=== PATIENT | female | born 1935 | race Caucasian/White ===

== ENCOUNTER 2023-10-20 13:55 | Inpatient (IN) | payer MEDICARE, OTHER, SELFPAY ==
[2023-10-20] VITALS (14 sets, daily range): BP systolic 113–169; BP diastolic 70–102; BMI 21.2
[2023-10-20] MEDS: ADACEL 0.5 ML IM (06:44)
--- NOTE | 2023-10-20 06:50 | EDRN ---
Pt was using her walker and her knees gave out on her. Pt says she has pain in her knees when she walks. Pt sustained skin tears to b/l arms. No pain while lying on stretcher.
--- NOTE | 2023-10-20 07:05 | ED.GENMED ---
History of Present Illness
General
Chief Complaint: Fall
Source: patient
Exam Limitations: none
Time Seen by Provider: 10/20/23 06:32
Travel History
Have you had any contact with someone who has COVID-19?: No
Do you have any symptoms of coronavirus? Fever > 100 degrees, chills, cough, shortness of breath, sore throat, loss of taste or smell, muscle aches, or headache?: No
History of Present Illness
History of Present Illness:
88-year-old female stood up with her knees getting out of 4 AM. Fell on her buttock. No head injury. Some abrasions to the arms and leg. No chest pain abdominal pain no head injury or neck pain. Symptoms are mild in nature
Past History
Past History
ED Past Medical History: Arrthythmia and HTN
Review of Systems
Review of Systems
All Other Systems: Not applicable
Respiratory: Reports no symptoms
Cardiac: Reports no symptoms
Phy Exam
Physical Exam
Physical Exam:
TRAUMA EXAM:
VITAL SIGNS: Vital signs reviewed, cooperative
DISTRESS: No active disease
EYES: Pupils reactive, no orbital trauma
NOSE: No deformity or epistaxis
FACE AND SCALP: No scalp or facial trauma, external canals no blood
NECK: Supple nontender
BACK: Back nontender, pelvis stable to compression
RESPIRATORY: No distress, breath sounds normal, no tender chest wall
CARDIAC: No murmur, pulses equal and strong
ABDOMEN: Soft nontender bowel sounds normal
SKIN: Superficial skin tear to the left and right arm and left leg. No deep bony tenderness
EXTREMITIES: Nontender, except very mild lower sacral tenderness. Pelvis stable.
NEUROLOGICAL: Alert, oriented, no motor deficits
PSYCH: Mood affect normal
Course
Orders/Labs/Results
Orders:
Orders
10/20/23 06:35
CT Head W/o Iv Contrast Urgent
Comment:
Reason For Exam: Fall/anticoagulated
Cardiac Monitoring- Treatment ONCE
Lumbar Spine, 2 or 3 View [CR Lumbar Spine 2 Or 3 Views] Urgent
Comment:
Reason For Exam: trauma
Pelvis, 1 or 2 Views CR [CR Pelvis - 1 Or 2 Views ] Urgent
Comment:
Reason For Exam: trauma
Sacrum/Coccyx 2 View CR [CR Sacrum/coccyx Min 2 View] Urgent
Comment:
Reason For Exam: trauma
10/20/23 06:36
Tetanus/Diphth/Acelpertussis [Adacel] 0.5 ml IM .ONCE ONE
10/20/23 09:03
Basic Metabolic Panel Urgent
Complete Blood Count/With Diff Urgent
Abnormal Lab Results
10/20/23
09:03
WBC 12.1 H 10^3/uL
(4.8-10.8)
RBC 3.58 L 10^6/uL
(4.20-5.40)
Hgb 11.7 L g/dL
(12.0-16.0)
Hct 33.6 L %
(37.0-47.0)
MCH 32.7 H pg
(27.0-31.0)
Abs Immat Gran (auto) 0.2 H 10^3/uL
(0-0.05)
Absolute Neuts (auto) 10.0 H 10^3/uL
(1.4-6.5)
Absolute Lymphs (auto) 0.6 L 10^3/uL
(1.2-3.4)
Absolute Monos (auto) 1.3 H 10^3/uL
(0.1-0.6)
Immature Gran % 1.3 H %
(0-0.5)
Neutrophils % 82.7 H %
(42.2-75.2)
Lymphocytes % 4.6 L %
(20.5-51.1)
Monocytes % 11.1 H %
(1.7-9.3)
Sodium 125 L mmol/L
(135-145)
Chloride 91 L mmol/L
(98-107)
Creatinine 0.4 L mg/dL
(0.6-1.0)
Glucose 136 H mg/dl
(70-99)
10/20/23 09:03
10/20/23 09:03
Vital Signs
Initial and Last Documented VS:
Initial Vital Signs
Temp Pulse Resp BP Pulse Ox
98.2 F 90 22 122/70 97
10/20/23 05:20 10/20/23 05:20 10/20/23 05:20 10/20/23 05:20 10/20/23 05:20
Last Documented Vital Signs
Temp Pulse Resp BP Pulse Ox
98.2 F 89 19 137/92 92
10/20/23 05:20 10/20/23 10:00 10/20/23 10:00 10/20/23 10:00 10/20/23 09:47
MDM/Problems Addressed
Differential Diagnosis Includes:
Appear to be all superficial contusions and abrasions. However on Eliquis based on mechanism CT of the head will also be obtained.
*Critical Care Note
Total Time (30-74mins, 75-104mins- exclusive of procedures): Not Applicable
Update Note
Update Note:
Patient's x-rays show probable old fractures. Head CT stable. Not aware of old CVA however. History of hyponatremia. Sodium was checked and 125. Discussed with neurology who felt inpatient management was appropriate
ED Attending Note
-
Portions of this chart may have been created with voice recognition software.� Occasional wrong word or��sound alike� substitutions may have occurred due to the inherent limitations of voice recognition software.
Discharge Plan
Departure
Patient Disposition: Admit
Date of Disposition: 10/20/23
Time of Disposition: 10:11
Presentation/result/management discussed w/ accepting MD/DO: Hospitalist
Discharge Problem:
Hyponatremia, Fall, Chronic knee issues, Multiple abrasions
Referrals:
Pop Palomares MD [Family Provider] -
Interventions
Interventions:
*Risk Screen - Suicide Last Done: 10/20/23 05:20
*General Assessment Last Done: 10/20/23 06:39
*Neglect/Abuse Screening Last Done: 10/20/23 05:20
ED- Fall Risk Assessment Last Done: 10/20/23 06:48
*ED COVID-19 Vaccine History Last Done: 10/20/23 06:37
ED-Musculoskeletal Assessment Last Done: 10/20/23 06:48
ED- Neurological Assessment Last Done: 10/20/23 06:48
ED-Skin Assessment Last Done: 10/20/23 06:48
Discharge Date and Time
Print Language: SINHALA
[2023-10-20 09:11] LABS: % Basophils 0.2 % (0-2); % Eosinophils 0.1 % (0-6); % Immature Granulocytes 1.3 % (0-0.5); % Lymphocytes 4.6 % (20.5-51.1); % Monocytes 11.1 % (1.7-9.3); % Neutrophils 82.7 % (42.2-75.2); Absolute Immature Granulocytes 0.2 10^3/uL (0-0.05); Absolute Lymphocytes 0.6 10^3/uL (1.2-3.4); Absolute Monocytes 1.3 10^3/uL (0.1-0.6); Hematocrit 33.6 % (37.0-47.0); Hemoglobin 11.7 g/dL (12.0-16.0); Mean Corp Hgb Conc. 34.8 g/dL (33.0-37.0); Mean Corpuscular Hgb 32.7 pg (27.0-31.0); Mean Corpuscular Volume 93.9 fL (81.0-99.0); Mean Platelet Volume 10.1 fL (7.4-10.4); Nucleated Red Blood Cells % 0 %; Platelet Count 160 10^3/uL (130-400); Red Blood Cell Count 3.58 10^6/uL (4.20-5.40); Red Cell Dist. Width 13.7 % (11.5-14.5); White Blood Cell Count 12.1 10^3/uL (4.8-10.8)
[2023-10-20 09:35] LABS: Blood Urea Nitrogen 9 mg/dl (7-17); Calcium 8.7 mg/dl (8.4-10.2); Carbon Dioxide 25 mmol/L (22-30); Chloride 91 mmol/L (98-107); Estimated Creatinine Clearance 59 ml/min; Glucose 136 mg/dl (70-99); Potassium 4.1 mmol/L (3.5-5.1); Sodium 125 mmol/L (135-145); eGFR > 60.00
--- NOTE | 2023-10-20 12:21 | W.CON.NEPH ---
Medical History
-
Chief Complaint: Hyponatremia
History of Present Illness:
This is an 88-year-old female who resides at [facility] who previously had received all her care at [facility]. She has hypertension on a multidrug regimen, arrhythmia with anticoagulation with Eliquis, hypothyroidism on
Synthroid therapy. Most of her history is given by her daughter. She had recently had episodes where she appeared to be spaced out. This was then felt to be a seizure by neurology and she was ordered an EEG to be done as an outpatient. It
appears that the sodium level at that time was 127. There is no intervention for that at that time. She was readmitted for a fall and she was found to have a sodium level of 119. States that she was admitted for 3 days at [facility] and received
for appear to be hypertonic saline. She was then discharged to rehab. Reportedly at rehab her sodium level has increased into the 135 range. Her daughter says that she was drinking a lot of fluid and the patient does state that she drinks easily
up to 96 ounces per day. She drinks a lot of thirst but because she believes it makes her health better. She came to the emergency room today because she got out of bed to go to the bathroom and had fallen. Here they had checked her sodium level
and it was noted to be 125.
Past Medical History
Arrhythmia, hypertension, hypothyroidism, depression/anxiety
Femoral titanium haydee, back surgery, carpal tunnel surgery
Social History
Tobacco: Non-Smoker
Alcohol: Daily
Family History
No CKD
Allergies / Home Medications
Allergy/AdvReac Type Severity Reaction Status Date / Time
Penicillins Allergy Unknown Verified 10/20/23 05:23
�Medication �Instructions �Recorded �Confirmed �Type
acetaminophen 325 mg tablet 650 mg PO Q6H PRN pain 10/20/23 10/20/23 History
amlodipine 2.5 mg tablet 2.5 mg PO HS Blood Pressure 10/20/23 10/20/23 History
apixaban 2.5 mg tablet (Eliquis) 2.5 mg PO Q12 atrial fibrillation 10/20/23 10/20/23 History
bupropion HCl 150 mg 24 hr tablet, 150 mg PO DAILY depression/anxiety 10/20/23 10/20/23 History
extended release
buspirone 7.5 mg tablet 7.5 mg PO BID anxiety 10/20/23 10/20/23 History
cholecalciferol (vitamin D3) 50 50 mcg PO DAILY Supplement 10/20/23 10/20/23 History
mcg (2,000 unit) capsule (Vitamin
D3)
levothyroxine 112 mcg tablet 112 mcg PO DAILY Thyroid 10/20/23 10/20/23 History
metoprolol succinate 25 mg 25 mg PO HS Blood Pressure 10/20/23 10/20/23 History
tablet,extended release 24 hr
polyethylene glycol 3350 17 17 g PO HS constipation 10/20/23 10/20/23 History
gram/dose oral powder (Miralax)
prednisone 20 mg tablet 20 mg PO BIDPRN PRN x 5 days for 10/20/23 10/20/23 History
knee pain
Review of Systems
-
No chest pain or shortness of breath. No fevers chills or sweats. No excessive thirst. No issues with urination. Mild back pain
All other systems: Negative unless noted
Physical Exam
Vital Signs
Vital Signs
Temp Pulse Resp BP Pulse Ox
98.2 F 88 24 137/92 94
10/20/23 05:20 10/20/23 11:00 10/20/23 11:00 10/20/23 10:00 10/20/23 10:45
Lab Results
WBC 12.1 10^3/uL (4.8-10.8) H 10/20/23 09:03
RBC 3.58 10^6/uL (4.20-5.40) L 10/20/23 09:03
Hgb 11.7 g/dL (12.0-16.0) L 10/20/23:
Hct 33.6 % (37.0-47.0) L 10/20/23 09:03
Plt Count 160 10^3/uL (130-400) 10/20/23 09:03
Sodium 125 mmol/L (135-145) L 10/20/23:03
Potassium 4.1 mmol/L (3.5-5.1) 10/20/23:
Chloride 91 mmol/L (98-107) L 10/20/23:
Carbon Dioxide 25 mmol/L (22-30) 10/20/23:
BUN 9 mg/dl (7-17) 10/20/23:
Creatinine 0.4 mg/dL (0.6-1.0) L 10/20/23:
eGFR > 60.00 10/20/23:
Glucose 136 mg/dl (70-99) H 10/20/23:
Calcium 8.7 mg/dl (8.4-10.2) 10/20/23 09:03
Physical Exam
Patient is awake alert oriented and in no distress. Mood and affect were pleasant, insight and judgment were good. Pupils are equal round and reactive to light, extraocular movements are intact, sclera were anicteric. Hearing was normal, ears and
nose are intact. Oropharynx was clear. Neck was supple with trachea midline and no thyromegaly. Heart was regular rate and rhythm without rubs. Lower extremities without edema. Lungs were clear to auscultation bilaterally and with normal
excursion. Abdomen was soft, nontender, with normal active bowel sounds, and no hepatosplenomegaly. Skin was without rash and with normal turgor.
Data Reviewed
-
Radiology: Image Personally Visualized and interpreted (On 01/20/2024 x-ray lumbar spine shows compression fracture L2 by my reading) and Report Reviewed by me (On October 20, 2023 pelvic x-ray shows chronic left pelvic ramus as well as ischial
tuberosity fracture)
CT Scan: Report Reviewed by me (CT of the head on October 20, 2023 shows chronic strokes in the left frontal and temporal lobes, a 2.5 cm meningioma, encephalomalacia diffuse)
Labs: Labs Reviewed by me (Sodium 125, potassium 4.1, creatinine 0.9, BUN 9, glucose 136, hemoglobin 11.7)
Old Records: Reviewed (As discussed with the family and listed above)
Assessment/Plan
-
Assessment:
Hyponatremia
Hypertension
Fall
L2 compression fracture
Hypothyroidism
History seizure
Depression/anxiety
Plan:
Fluid restriction 40 ounces per day
Follow BMP
Check urine studies, may benefit from [facility]
Check TSH
May need to hold bupropion and buspirone if sodium falls
Discussed with patient and daughter
[2023-10-20 13:14] LABS: Urine Sodium 15 mmol/L (30-90)
--- NOTE | 2023-10-20 13:24 | HPS.HSE ---
Family Physician
-
Family Physician: Pop Palomares
Chief Complaint
-
Weakness fall
History of Present Illness
88 female from [facility] hypertension A-fib Eliquis hypothyroidism arthritis anxiety depression presents for evaluation of fall. AOx3 patient reports getting up from bed early in the morning and was on her way to the bathroom when she
felt her knees were weak eating subsequently took a fall. Denies head trauma loss of consciousness shaking incontinence chest abdomen pain palpitations. On evaluation in ED patient was found to have sodium 125. Vital signs stable. CT head showed
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 Pelvic and lower spine x-rays noted age indeterminant compression fracture L2 and likely chronic pelvic fracture left pubis and ischial tuberosity. Of note
patient was also recently hospitalized and treated at [facility] for severe hyponatremia, subsequently discharged to rehab completed a few days ago as per patient. 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
seizure medications.
Medical History
Past Medical History
Past Medical History: Reports Other (as above)
Past Surgical History: Reports Other (as abvoe)
Social History
Tobacco: Non-smoker
Alcohol: Occasional
Drug: None
Living: Other ([facility])
Family History
Family History: Not pertinent (reviewed)
Allergies / Home Medications
Allergies reflects when Allergies were last updated in [facility].
Home Medications with original date entered in [facility]
Allergy/Medication List:
Allergies
Allergy/AdvReac Type Severity Reaction Status Date / Time
Penicillins Allergy Unknown Verified 10/20/23 05:23
Home Medications
acetaminophen 325 mg tablet 650 mg PO Q6H PRN pain 10/20/23
amlodipine 2.5 mg tablet 2.5 mg PO HS Blood Pressure 10/20/23
apixaban 2.5 mg tablet (Eliquis) 2.5 mg PO Q12 atrial fibrillation 10/20/23
bupropion HCl 150 mg 24 hr tablet, extended release 150 mg PO DAILY depression/anxiety 10/20/23
buspirone 7.5 mg tablet 7.5 mg PO BID anxiety 10/20/23
cholecalciferol (vitamin D3) 50 mcg (2,000 unit) capsule (Vitamin D3) 50 mcg PO DAILY Supplement 10/20/23
levothyroxine 112 mcg tablet 112 mcg PO DAILY Thyroid 10/20/23
metoprolol succinate 25 mg tablet,extended release 24 hr 25 mg PO HS Blood Pressure 10/20/23
polyethylene glycol 3350 17 gram/dose oral powder (Miralax) 17 g PO HS constipation 10/20/23
prednisone 20 mg tablet 20 mg PO BIDPRN PRN x 5 days for knee pain 10/20/23
Review of Systems
-
A 12 point ROS was completed and negative except as noted: Yes
Constitutional: Reports Other (as below)
Physical Exam
Vital Signs
Vital Signs
Temp Pulse Resp BP Pulse Ox
98.2 F 88 24 137/92 94
10/20/23 05:20 10/20/23 11:00 10/20/23 11:00 10/20/23 10:00 10/20/23 10:45
Physical Exam
General: Other (as below)
Laboratory Results
-
10/20/23 09:03
10/20/23 09:03
Impression/Plan
-
ROS
General: Denies fever chills night sweats unexpected weight loss
Neuro: Denies seizure shaking loss of consciousness dizziness vertigo
Psych: denies depression hallucinations confusion manic episodes
Endocrine: Denies polyuria polydipsia polyphagia heat/cold intolerance
HEENT: Denies blindness visual disturbances epistaxis
Pulmonary: denies coughing hemoptysis sneezing sob dyspnea on exertion
Cardiovascular: denies chest pain palpitations leg swelling
Hematology: denies signs symptoms of anemia easy bruising/bleeding
Gastrointestinal: denies nausea vomiting diarrhea constipation hematemesis hematochezia melena
Genito-Urinary: denies retention incontinence dysuria
Musculoskeletal: Bilateral knee pain weakness
Dermatology: denies rash laceration bruising
Physical Exam
General: No pallor, cyanosis, or jaundice.
HEENT: Throat clear. PERRLA Normocephalic atraumatic
NECK: Supple. No JVD Carotid Bruits
RESPIRATORY: Lungs clear to auscultation. No crackles wheezes stridor
CVS: S1, S2 normal. RRR. No murmur, rub or gallop.
ABDOMEN: Soft, non-tender. No distension. BS+/normal.
EXTREMITIES: No peripheral cyanosis or edema.
[employer]: AOx3. No focal deficits.
IMPRESSION:
88 female from [facility] hypertension A-fib Eliquis hypothyroidism arthritis anxiety depression presents for evaluation of fall. AOx3 patient reports getting up from bed early in the morning and was on her way to the bathroom when she
felt her knees were weak eating subsequently took a fall. Denies head trauma loss of consciousness shaking incontinence chest abdomen pain palpitations. On evaluation in ED patient was found to have sodium 125. Vital signs stable. CT head showed
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 Pelvic and lower spine x-rays noted age indeterminant compression fracture L2 and likely chronic pelvic fracture left pubis and ischial tuberosity. Of note
patient was also recently hospitalized and treated at [facility] for severe hyponatremia, subsequently discharged to rehab completed a few days ago as per patient. 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
seizure medications.
PLAN:
#Hyponatremia
Nephro eval appreciated
Fluid restriction
Monitor sodium, avoid overcorrection
#Ambulate dysfunction/fall
#L2 Compression fx indeterminate age
#Left pelvic fx likely chronic
PT OT eval
Fall precautions
Pain control
Sacrum Coccyx Pelvic Lumbar spine XR appreciated
-Age-indeterminate moderate compression deformity along the superior endplate of L2.
-Fracture deformities of the left pubis and ischial tuberosity, which may be chronic in nature. Correlation with prior x-rays and history recommended.
-Internally fixated proximal femur fracture.
CT head appreciated
-no acute abn's
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
-severe white matter leukoaraiosis
-moderate cerebellar volume loss
#Hypertension
Continue home amlodipine and metoprolol with holding parameters
#A-fib rate controlled
Continue home metoprolol with holding parameters
Continue home renally dosed Eliquis due to age and weight
#Hypothyroidism
Follow-up thyroid function test
Continue home Synthroid
#Anxiety/depression
Continue home bupropion buspirone
DVT prophylaxis Eliquis
Meds reconciled and resumed as appropriate
Full code as per patient
I spent a total of 85 minutes with the patient or on the floor. More than 50% of this time involved counseling and coordination of care.
[2023-10-20 14:35] LABS: Free T4 2.12 ng/dl (0.78-2.19)
[2023-10-20 14:49] LABS: TSH 0.07 uIU/ml (0.47-4.68)
[2023-10-20 15:07] LABS: Osmolality Urine 494 mOsm/kg (300-900)
[2023-10-20] MEDS: SODIUM CHLORIDE 3% 250 IV (17:04)
[2023-10-20] MEDS: ELIQUIS 2.5 MG PO (21:00)
[2023-10-20] MEDS: MIRALAX 17 GRAMS PO (21:00)
[2023-10-20] MEDS: BUSPAR 7.5 MG PO (21:00)
[2023-10-20] MEDS: NORVASC 2.5 MG PO (21:01)
[2023-10-20] MEDS: TOPROL XL 25 MG PO (21:01)
[2023-10-20] MEDS: TYLENOL 650 MG PO (21:01)
[2023-10-20 21:47] LABS: Blood Urea Nitrogen 12 mg/dl (7-17); Carbon Dioxide 24 mmol/L (22-30); Chloride 89 mmol/L (98-107); Estimated Creatinine Clearance 59 ml/min; Glucose 165 mg/dl (70-99); Potassium 4.3 mmol/L (3.5-5.1); Sodium 123 mmol/L (135-145); eGFR > 60.00
[2023-10-21] VITALS (8 sets, daily range): BP systolic 119–137; BP diastolic 74–92; PULSE 86–92; O2SAT 97; BMI 21.2; BMI 20.5
[2023-10-21 05:50] LABS: Hematocrit 31.9 % (37.0-47.0); Hemoglobin 11.4 g/dL (12.0-16.0); Mean Corp Hgb Conc. 35.7 g/dL (33.0-37.0); Mean Corpuscular Volume 92.5 fL (81.0-99.0); Mean Platelet Volume 10.5 fL (7.4-10.4); Platelet Count 152 10^3/uL (130-400); Red Blood Cell Count 3.45 10^6/uL (4.20-5.40); Red Cell Dist. Width 13.7 % (11.5-14.5); White Blood Cell Count 9.1 10^3/uL (4.8-10.8)
[2023-10-21] MEDS: SYNTHROID 112 MCG PO (06:09)
[2023-10-21 06:10] LABS: Blood Urea Nitrogen 10 mg/dl (7-17); Calcium 8.7 mg/dl (8.4-10.2); Carbon Dioxide 24 mmol/L (22-30); Chloride 96 mmol/L (98-107); Estimated Creatinine Clearance 59 ml/min; Glucose 113 mg/dl (70-99); Magnesium 2.1 mg/dl (1.6-2.3); Potassium 4.1 mmol/L (3.5-5.1); Sodium 129 mmol/L (135-145); eGFR > 60.00
[2023-10-21] MEDS: ELIQUIS 2.5 MG PO ×2 (08:13→20:55)
[2023-10-21] MEDS: BUSPAR 7.5 MG PO ×2 (08:13→20:54)
[2023-10-21] MEDS: VITAMIN D3 (cholecalciferol) 50 MCG PO (08:13)
[2023-10-21] MEDS: WELLBUTRIN XL (24 hour extended release) 150 MG PO (08:13)
[2023-10-21] MEDS: TYLENOL 650 MG PO ×2 (08:18→20:58)
--- NOTE | 2023-10-21 08:54 | W.PN.HOSP.TC ---
Today's Communication/Plan
-
see bold
Assessment / Plan
Assessment / Plan
HPI: 88 female from [facility] hypertension A-fib Eliquis hypothyroidism arthritis anxiety depression presents for evaluation of fall. AOx3 patient reports getting up from bed early in the morning and was on her way to the bathroom when
she felt her knees were weak eating subsequently took a fall. Denies head trauma loss of consciousness shaking incontinence chest abdomen pain palpitations. On evaluation in ED patient was found to have sodium 125. Vital signs stable. CT head
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 Pelvic and lower spine x-rays noted age indeterminant compression fracture L2 and likely chronic pelvic fracture left pubis and ischial tuberosity. Of
note patient was also recently hospitalized and treated at [facility] for severe hyponatremia, subsequently discharged to rehab completed a few days ago as per patient. 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
seizure medications.
#Hyponatremia
Sodium 129 today, was 123 upon admission. Status post hypertonic saline
Appreciate nephrology input, status post hypertonic saline
Patient to get [facility] today, continue fluid restriction, trend sodium
EEG unremarkable (ordered outpt for concerns of absence seizures)
#Ambulate dysfunction/fall
#L2 Compression fx indeterminate age
#Left pelvic fx likely chronic
PT OT eval - rec SNF
Fall precautions
Pain control
Sacrum Coccyx Pelvic Lumbar spine XR appreciated
-Age-indeterminate moderate compression deformity along the superior endplate of L2.
-Fracture deformities of the left pubis and ischial tuberosity, which may be chronic in nature. Correlation with prior x-rays and history recommended.
-Internally fixated proximal femur fracture.
CT head appreciated
-no acute abn's
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
-severe white matter leukoaraiosis
-moderate cerebellar volume loss
#Hypertension
Continue home amlodipine and metoprolol with holding parameters
#A-fib rate controlled
Continue home metoprolol with holding parameters
Continue home renally dosed Eliquis due to age and weight
#Hypothyroidism
Follow-up thyroid function test
Continue home Synthroid
#Anxiety/depression
Continue home bupropion buspirone
DVT prophylaxis�Eliquis
Full code
Total time spent to see the patient on the floor, examine the patient, review data and lab results, discuss treatment plan with patient, nursing staff around 51 minutes.
Physical Exam
General: Frail, elderly, no acute distress
HEENT: Normocephalic, Atraumatic, EOMI, MMM
Respiratory: Clear to Auscultation bilaterally
Cardiac: Normal S1/S2, Regular Rate and Rhythm
GI: Soft, Nontender, Nondistended, Normal Bowel Sounds
Extremities: No Clubbing, Cyanosis
Scattered lesions on lower extremity
Neuro: Nonfocal/Grossly Intact
Psych: Calm, Cooperative
Derm: No Visible lesions
Anticipated Discharge: 24 - 48 hours
Subjective/Interval History
-
Date of Service: October 21, 2023
Patient reports feeling better. She feels strong. No fever, no vomiting.
Objective Data
-
Labs:
Laboratory Results
10/20/23 10/21/23
21:21 05:29
WBC 9.1
Hgb 11.4 L
Hct 31.9 L
Plt Count 152
Sodium 123 L 129 L
Potassium 4.3 4.1
Chloride 89 L 96 L
Carbon Dioxide 24 24
BUN 12 10
Creatinine 0.4 L 0.5 L
Glucose 165 H 113 H
Calcium 9.0 8.7
Vital Signs:
Vital Signs
Temp Pulse Resp BP Pulse Ox
98.4 F 89 18 125/74 93
10/21/23 07:00 10/21/23 07:00 10/21/23 07:00 10/21/23 07:00 10/21/23 07:00
I&O
10/20/23 10/21/23 10/22/23
06:59 06:59 06:59
Intake Total 850 / 850
Balance 850 / 850
--- NOTE | 2023-10-21 12:02 | CM ---
Addendum entered by Corina Guillaume 10/21/23 12:42:
Spoke with daughter Lisa - [phone]
Agrees SNF would be beneficial for mother. Prefers [facility] and [facility]
Referral sent in [facility]
Original Note:
Met with pt at bedside
Lives in independent living at [facility] in [place]. Has apartment. Prepares breakfast for self, community for other meals. Light housekeeping. Daughter is nearby - assists as needed and helps with shopping
DME - [employer]
SNF - has been to [facility] in [place] in past
HH - denies past VN
PCP - Dr Montez Palomares
Pharm - [facility]
PT/OT recommending SNF. Will discuss with pt and her daughter regarding options
Plan - anticipate SNF when medically ready
--- NOTE | 2023-10-21 12:19 | W.PN.NEPH.PH ---
Today's Communication / Plan
-
[facility]
Assessment/Plan
-
Assessment:
Hyponatremia
Hypertension
Fall
L2 compression fracture
Hypothyroidism
History seizure
Depression/anxiety
Plan:
Fluid restriction 40 ounces per day
Follow BMP
[facility] today
May need to hold bupropion and buspirone if sodium falls
-
-
Date of Service: October 21, 2023
CC / HPI / ROS
-
Chief Complaint:
hyponatremia
History of Present Illness:
Na up to 129 with 3%
BP stable
remains on buproprion for anxiety
Review of Systems:
no CP/SOB
no issues with FR
Labs
-
Labs:
WBC 9.1 10^3/uL (4.8-10.8) 10/21/23 05:29
RBC 3.45 10^6/uL (4.20-5.40) L 10/21/23 05:29
Hgb 11.4 g/dL (12.0-16.0) L 10/21/23 05:29
Hct 31.9 % (37.0-47.0) L 10/21/23 05:29
Plt Count 152 10^3/uL (130-400) 10/21/23 05:29
Sodium 129 mmol/L (135-145) L 10/21/23 05:29
Potassium 4.1 mmol/L (3.5-5.1) 10/21/23 05:
Chloride 96 mmol/L (98-107) L 10/21/23 05:29
Carbon Dioxide 24 mmol/L (22-30) 10/21/23 05:
BUN 10 mg/dl (7-17) 10/21/23 05:
Creatinine 0.5 mg/dL (0.6-1.0) L 10/21/23 05:29
eGFR > 60.00 10/21/23 05:29
Glucose 113 mg/dl (70-99) H 10/21/23 05:29
Calcium 8.7 mg/dl (8.4-10.2) 10/21/23 05:29
Physical Exam
-
Vital Signs:
Vital Signs
Temp Pulse Resp BP Pulse Ox
97.5 F 81 18 136/83 92
10/21/23 11:10 10/21/23 11:10 10/21/23 11:10 10/21/23 11:10 10/21/23 11:10
Cardiovascular:: Regular rate and rhythm
Respiratory:: Bilateral: CTA
Lung Excursion:: Normal
Abdomen:: Nontender and Soft
Bowel Sounds:: Normal
Extremity Edema:: None: Bilateral:
--- NOTE | 2023-10-21 12:42 | EEG.RPT ---
Electroencephalogram Report
Recording
Date of EE10/21/23
Type of EEG: Routine
Length of EEG recordin minutes
Done with Video Recording: Yes
Patient Status: Inpatient
Recording Conditions: Awake, Drowsy and Asleep
Hyperventilation Performed: No
Photic Stimulation Performed: Yes
Report
LESS THAN 1 HOUR EEG REPORT
LESS THAN 1 HOUR EEG INTERPRETATION:
Likely unremarkable EEG for age
CLINICAL CORRELATION:
Although normative values not been established for a person of this advanced age, the patient�s symmetry of the background suggests that this study was unremarkable.
A normal EEG does not rule out a diagnosis of epilepsy. If clinical suspicion for seizure persists, a prolonged recording may be warranted.
Clinical correlation is advised.
METHODS:
A 21 channel digitized electroencephalogram (EEG) was performed using the 10/20 international system of electrode placement and one-lead of ECG recorded. The Synthace quantitative analysis system was utilized.
ELECTROENCEPHALOGRAPHER IMPRESSION(S):
Quality of study
Good
Background
There was an unremarkable anterior-posterior voltage gradient of alpha frequency.
With eye opening the background activity changed to a low voltage mixture of frequencies.
There were no significant asymmetries of background activity noted.
Sleep
Drowsiness present
Stage 1 and 2 sleep present
Photic Stimulation
Some symmetric driving at intermediate flash frequencies
ECG
Normal sinus rhythm
[2023-10-21] MEDS: SAMSCA 7.5 MG PO (13:06)
[2023-10-21] MEDS: TOPROL XL 25 MG PO (20:54)
[2023-10-21] MEDS: MIRALAX 17 GRAMS PO (20:54)
[2023-10-21] MEDS: NORVASC 2.5 MG PO (20:55)
[2023-10-22 03:15] VITALS: BP 135/83
[2023-10-22 05:41] LABS: Hematocrit 35.3 % (37.0-47.0); Hemoglobin 12.2 g/dL (12.0-16.0); Mean Corp Hgb Conc. 34.6 g/dL (33.0-37.0); Mean Corpuscular Hgb 32.5 pg (27.0-31.0); Mean Corpuscular Volume 94.1 fL (81.0-99.0); Mean Platelet Volume 9.9 fL (7.4-10.4); Platelet Count 194 10^3/uL (130-400); Red Blood Cell Count 3.75 10^6/uL (4.20-5.40); Red Cell Dist. Width 13.9 % (11.5-14.5); White Blood Cell Count 7.2 10^3/uL (4.8-10.8)
[2023-10-22 06:00] VITALS: BMI 19.8
[2023-10-22] MEDS: SYNTHROID 112 MCG PO (06:14)
[2023-10-22 06:18] LABS: Blood Urea Nitrogen 11 mg/dl (7-17); Calcium 9.1 mg/dl (8.4-10.2); Carbon Dioxide 25 mmol/L (22-30); Chloride 100 mmol/L (98-107); Estimated Creatinine Clearance 56 ml/min; Glucose 110 mg/dl (70-99); Magnesium 2.1 mg/dl (1.6-2.3); Potassium 4.4 mmol/L (3.5-5.1); Sodium 134 mmol/L (135-145); eGFR > 60.00
[2023-10-22 07:00] VITALS: BP 141/87
--- NOTE | 2023-10-22 07:24 | W.PN.HOSP.TC ---
Today's Communication/Plan
-
Discharge to [facility] tomorrow if cleared by nephro
Assessment / Plan
Assessment / Plan
HPI: 88 female from [facility] hypertension A-fib Eliquis hypothyroidism arthritis anxiety depression presents for evaluation of fall. AOx3 patient reports getting up from bed early in the morning and was on her way to the bathroom when
she felt her knees were weak eating subsequently took a fall. Denies head trauma loss of consciousness shaking incontinence chest abdomen pain palpitations. On evaluation in ED patient was found to have sodium 125. Vital signs stable. CT head
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 Pelvic and lower spine x-rays noted age indeterminant compression fracture L2 and likely chronic pelvic fracture left pubis and ischial tuberosity. Of
note patient was also recently hospitalized and treated at [place] for severe hyponatremia, subsequently discharged to rehab completed a few days ago as per patient. 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
seizure medications.
#Hyponatremia
Sodium 134 today, s/p samsca 10/20, was 129, was 123 upon admission. Status post hypertonic saline
Appreciate nephrology input, continue fluid restriction, trend sodium
May need to hold bupropion and buspirone if sodium falls
EEG unremarkable (ordered outpt for concerns of absence seizures)
#Ambulate dysfunction/fall
#L2 Compression fx indeterminate age
#Left pelvic fx likely chronic
PT OT eval - rec SNF
Fall precautions
Pain control
Sacrum Coccyx Pelvic Lumbar spine XR appreciated
-Age-indeterminate moderate compression deformity along the superior endplate of L2.
-Fracture deformities of the left pubis and ischial tuberosity, which may be chronic in nature. Correlation with prior x-rays and history recommended.
-Internally fixated proximal femur fracture.
CT head appreciated
-no acute abn's
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
-severe white matter leukoaraiosis
-moderate cerebellar volume loss
#Hypertension
Continue home amlodipine and metoprolol with holding parameters
#A-fib rate controlled
Continue home metoprolol with holding parameters
Continue home renally dosed Eliquis due to age and weight
#Hypothyroidism
Follow-up thyroid function test
Continue home Synthroid
#Anxiety/depression
Continue home bupropion, buspirone
DVT prophylaxis�Eliquis
Full code
Total time spent to see the patient on the floor, examine the patient, review data and lab results, discuss treatment plan with patient, nursing staff around 35 minutes.
Physical Exam
General: Frail, elderly, no acute distress
HEENT: Normocephalic, Atraumatic, EOMI, MMM
Respiratory: Clear to Auscultation bilaterally
Cardiac: Normal S1/S2, Regular Rate and Rhythm
GI: Soft, Nontender, Nondistended, Normal Bowel Sounds
Extremities: No Clubbing, Cyanosis
Scattered lesions on lower extremity
Neuro: Nonfocal/Grossly Intact
Psych: Calm, Cooperative
Derm: No Visible lesions
Anticipated Discharge: Within 24 hours
Subjective/Interval History
-
Date of Service: October 22, 2023
No acute events. No fever, no vomiting.
Objective Data
-
Labs:
Laboratory Results
10/22/23
05:26
WBC 7.2
Hgb 12.2
Hct 35.3 L
Plt Count 194 D
Sodium 134 L
Potassium 4.4
Chloride 100
Carbon Dioxide 25
BUN 11
Creatinine 0.5 L
Glucose 110 H
Calcium 9.1
Vital Signs:
Vital Signs
Temp Pulse Resp BP Pulse Ox
97.8 F 85 16 135/83 98
10/22/23 03:15 10/22/23 03:15 10/22/23 03:15 10/22/23 03:15 10/22/23 03:15
I&O
10/21/23 10/22/23 10/23/23
06:59 06:59 06:59
Intake Total 850 / 850 960 / 960
Balance 850 / 850 960 / 960
[2023-10-22] MEDS: BUSPAR 7.5 MG PO ×2 (07:42→20:52)
[2023-10-22] MEDS: WELLBUTRIN XL (24 hour extended release) 150 MG PO (07:42)
[2023-10-22] MEDS: ELIQUIS 2.5 MG PO ×2 (07:43→20:52)
[2023-10-22] MEDS: VITAMIN D3 (cholecalciferol) 50 MCG PO (07:43)
[2023-10-22] MEDS: TYLENOL 650 MG PO ×2 (07:50→20:56)
[2023-10-22 11:00] VITALS: BP 128/76
--- NOTE | 2023-10-22 13:48 | CM ---
Case management following for d/c planning
Pt accepted at [facility] and [facility]
Discussed options with pts daughter - prefers [facility]
Discussed IMM
Spoke with Dai at [facility] - given daughters contact information - she will reach out to her
Plan - anticipate transfer to [facility] when medically ready for d/c
[2023-10-22 15:00] VITALS: BP 143/92
--- NOTE | 2023-10-22 15:13 | W.PN.NEPH.PH ---
Today's Communication / Plan
-
- follow Na
Assessment/Plan
-
Assessment:
Hyponatremia
Hypertension
Fall
L2 compression fracture
Hypothyroidism
History seizure
Depression/anxiety
Plan:
Fluid restriction 40 ounces per day
Follow BMP
May need to hold bupropion and buspirone if sodium falls
No samsca today
-
-
Date of Service: October 22, 2023
CC / HPI / ROS
-
Chief Complaint:
hyponatremia
History of Present Illness:
Na up to 129 with 3%, given samsca now up to 134
BP stable
remains on buproprion for anxiety
Review of Systems:
no CP/SOB
no issues with FR
Labs
-
Labs:
WBC 7.2 10^3/uL (4.8-10.8) 10/22/23 05:26
RBC 3.75 10^6/uL (4.20-5.40) L 10/22/23 05:26
Hgb 12.2 g/dL (12.0-16.0) 10/22/23 05:26
Hct 35.3 % (37.0-47.0) L 10/22/23 05:26
Plt Count 194 10^3/uL (130-400) D 10/22/23 05:26
Sodium 134 mmol/L (135-145) L 10/22/23 05:26
Potassium 4.4 mmol/L (3.5-5.1) 10/22/23 05:26
Chloride 100 mmol/L (98-107) 10/22/23 05:26
Carbon Dioxide 25 mmol/L (22-30) 10/22/23 05:26
BUN 11 mg/dl (7-17) 05/22/24 05:26
Creatinine 0.5 mg/dL (0.6-1.0) L 10/22/23 05:26
eGFR > 60.00 10/22/23 05:26
Glucose 110 mg/dl (70-99) H 10/22/23 05:26
Calcium 9.1 mg/dl (8.4-10.2) 10/22/23 05:26
Physical Exam
-
Vital Signs:
Vital Signs
Temp Pulse Resp BP Pulse Ox
98.2 F 74 18 128/76 97
10/22/23 11:00 10/22/23 11:00 10/22/23 11:00 10/22/23 11:00 10/22/23 11:00
Cardiovascular:: Regular rate and rhythm
Respiratory:: Bilateral: CTA
Lung Excursion:: Normal
Abdomen:: Nontender and Soft
Bowel Sounds:: Normal
Extremity Edema:: None: Bilateral:
Khan Catheter: No
[2023-10-22 19:45] VITALS: BP 142/78
[2023-10-22] MEDS: TOPROL XL 25 MG PO (20:52)
[2023-10-22] MEDS: MIRALAX 17 GRAMS PO (20:52)
[2023-10-22] MEDS: NORVASC 2.5 MG PO (20:52)
[2023-10-22 23:33] VITALS: BP 130/86
[2023-10-23 03:46] VITALS: BP 134/78
[2023-10-23] MEDS: SYNTHROID 112 MCG PO (05:35)
[2023-10-23 05:46] LABS: Hematocrit 34.8 % (37.0-47.0); Mean Corp Hgb Conc. 34.5 g/dL (33.0-37.0); Mean Corpuscular Hgb 32.6 pg (27.0-31.0); Mean Corpuscular Volume 94.6 fL (81.0-99.0); Mean Platelet Volume 9.8 fL (7.4-10.4); Platelet Count 219 10^3/uL (130-400); Red Blood Cell Count 3.68 10^6/uL (4.20-5.40); Red Cell Dist. Width 13.6 % (11.5-14.5); White Blood Cell Count 5.8 10^3/uL (4.8-10.8)
[2023-10-23 05:48] VITALS: BMI 19.6
[2023-10-23 06:00] VITALS: BMI 19.6
[2023-10-23 06:11] LABS: Blood Urea Nitrogen 13 mg/dl (7-17); Calcium 8.9 mg/dl (8.4-10.2); Carbon Dioxide 26 mmol/L (22-30); Chloride 99 mmol/L (98-107); Glucose 110 mg/dl (70-99); Magnesium 2.1 mg/dl (1.6-2.3); Potassium 4.4 mmol/L (3.5-5.1); Sodium 133 mmol/L (135-145)
[2023-10-23 06:20] LABS: Estimated Creatinine Clearance 56 ml/min; eGFR > 60.00
[2023-10-23 06:40] LABS: Cortisol, Random 14.7 ug/dl
[2023-10-23 07:30] VITALS: BP 141/80
[2023-10-23] MEDS: ELIQUIS 2.5 MG PO (07:32)
[2023-10-23] MEDS: BUSPAR 7.5 MG PO (07:32)
[2023-10-23] MEDS: WELLBUTRIN XL (24 hour extended release) 150 MG PO (07:32)
[2023-10-23] MEDS: VITAMIN D3 (cholecalciferol) 50 MCG PO (07:33)
[2023-10-23] MEDS: TYLENOL 650 MG PO (07:36)
--- NOTE | 2023-10-23 09:21 | W.PN.HOSP.TC ---
Today's Communication/Plan
-
Discharge to SNF today
Assessment / Plan
Assessment / Plan
HPI: 88 female from [facility] hypertension A-fib Eliquis hypothyroidism arthritis anxiety depression presents for evaluation of fall. AOx3 patient reports getting up from bed early in the morning and was on her way to the bathroom when
she felt her knees were weak eating subsequently took a fall. Denies head trauma loss of consciousness shaking incontinence chest abdomen pain palpitations. On evaluation in ED patient was found to have sodium 125. Vital signs stable. CT head
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 Pelvic and lower spine x-rays noted age indeterminant compression fracture L2 and likely chronic pelvic fracture left pubis and ischial tuberosity. Of
note patient was also recently hospitalized and treated at [facility] for severe hyponatremia, subsequently discharged to rehab completed a few days ago as per patient. 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
seizure medications.
#Hyponatremia
Sodium 133 today, was 134, s/p samsca 10/20, was 129, was 123 upon admission. Status post hypertonic saline
Appreciate nephrology input, continue fluid restriction, trend sodium
BMP on 10/26 at the [facility]
EEG unremarkable (ordered outpt for concerns of absence seizures)
#Ambulate dysfunction/fall
#L2 Compression fx indeterminate age
#Left pelvic fx likely chronic
PT OT eval - rec SNF
Fall precautions
Pain control
Sacrum Coccyx Pelvic Lumbar spine XR appreciated
-Age-indeterminate moderate compression deformity along the superior endplate of L2.
-Fracture deformities of the left pubis and ischial tuberosity, which may be chronic in nature. Correlation with prior x-rays and history recommended.
-Internally fixated proximal femur fracture.
CT head appreciated
-no acute abn's
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
-severe white matter leukoaraiosis
-moderate cerebellar volume loss
#Hypertension
Continue home amlodipine and metoprolol with holding parameters
#A-fib rate controlled
Continue home metoprolol with holding parameters
Continue home renally dosed Eliquis due to age and weight
#Hypothyroidism
Follow-up thyroid function test
Continue home Synthroid
#Anxiety/depression
Continue home bupropion, buspirone
DVT prophylaxis�Eliquis
Full code
Physical Exam
General: Frail, elderly, no acute distress
HEENT: Normocephalic, Atraumatic, EOMI, MMM
Respiratory: Clear to Auscultation bilaterally
Cardiac: Normal S1/S2, Regular Rate and Rhythm
GI: Soft, Nontender, Nondistended, Normal Bowel Sounds
Extremities: No Clubbing, Cyanosis
Scattered lesions on lower extremity
Neuro: Nonfocal/Grossly Intact
Psych: Calm, Cooperative
Derm: No Visible lesions
Anticipated Discharge: Today
Subjective/Interval History
-
Date of Service: October 23, 2023
Feels well. Denies pain, denies weakness. Is eager for discharge. No fever, no vomiting.
Objective Data
-
Labs:
Laboratory Results
10/23/23
05:29
WBC 5.8
Hgb 12.0
Hct 34.8 L
Plt Count 219
Sodium 133 L
Potassium 4.4
Chloride 99
Carbon Dioxide 26
BUN 13
Creatinine 0.5 L
Glucose 110 H
Calcium 8.9
Vital Signs:
Vital Signs
Temp Pulse Resp BP Pulse Ox
97.5 F 81 16 141/80 97
10/23/23 07:30 10/23/23 07:30 10/23/23 07:30 10/23/23 07:30 10/23/23 07:30
I&O
0510/23/23 10/24/23
06:59 06:59 06:59
Intake Total 960 / 960 1080 / 1080
Balance 960 / 960 1080 / 1080
--- NOTE | 2023-10-23 09:41 | W.DCSUMMARY ---
Discharge Summary
Discharge Data
Date of Admission: 10/20/23
Date of Discharge: 10/23/23
-
Pending Results: No
Hospital Course
Discharge diagnosis:
Acute hyponatremia
Ambulatory dysfunction
Mechanical fall
Age-indeterminate lumbar vertebra to compression fracture
Chronic left pelvis fracture
Meningioma
Paroxysmal atrial fibrillation
Hypothyroidism
Anxiety/depression
Consults: Nephrology
Hospital course:
88-year-old female with a past medical history of atrial fibrillation on Eliquis, hypertension, hypothyroidism, arthritis, and anxiety/depression was admitted for mechanical fall, ambulatory dysfunction, and acute hyponatremia.
Patient was seen in conjunction with nephrology. Her sodium upon admission was 125. She received hypertonic saline, it increased to 129. She then received Samsca, and improved to 134. She was treated with a fluid restriction. Her sodium
remained stable at 133 on the day of discharge. She is on bupropion and buspirone for anxiety/depression. She will be discharged on a fluid restriction, she needs repeat BMP on 10/26 at the nursing facility rehab. If her sodium falls, she may need
to discontinue her bupropion and buspirone.
Apparently her outpatient doctor was concerned for absence seizure's, and had ordered an EEG outpatient. The EEG was done here, it was negative for seizure activity.
Patient was seen in conjunction with PT, who recommended short-term rehab. Patient is medically stable for discharge to short-term rehab. She needs to follow-up with her primary care doctor 1 week after she leaves short-term rehab.
Disposition: Short-term rehab
Discharge planning: Required 33 minutes
Discharge Plan
-
Patient Disposition: [facility]SNF
Discharge Diagnosis/Procedures: Acute hyponatremia, weakness, lumbar vertebrae to compression fracture, left pelvic fracture
Condition: Fair
Diet: Restrict fluids to 48 oz
Activity: As tolerated
Driving Restrictions: As prior to admission
Blood Work: CMP on 10/27/2023
Activity Restrictions/Additional Instructions:
Your sodium was low in the hospital. Please adhere to a 48 ounce fluid restriction to prevent your sodium from going lower.
Your sodium on the day of discharge is 133, improved from admission of 125.
Please follow-up with your primary care doctor 1 week after you leave rehab.
Referrals:
Pop Palomares MD [Family Provider] - in one week
Prescriptions:
New
acetaminophen [Acetaminophen Pain Relief] 500 mg tablet
1,000 mg PO QID PRN (Reason: fever or pain) Qty: 60 0RF
Continued
amlodipine 2.5 mg tablet
2.5 mg PO HS
buspirone 7.5 mg tablet
7.5 mg PO BID
metoprolol succinate 25 mg tablet extended release 24 hr
25 mg PO HS
polyethylene glycol 3350 [Miralax] 17 gram/dose Powder
17 g PO HS
Rx Instructions:
take with prune juice
levothyroxine 112 mcg tablet
112 mcg PO DAILY
bupropion HCl 150 mg tablet extended release 24 hr
150 mg PO DAILY
cholecalciferol (vitamin D3) [Vitamin D3] 50 mcg (2,000 unit) capsule
50 mcg PO DAILY
Eliquis 2.5 mg tablet
2.5 mg PO Q12
Discontinued
acetaminophen 325 mg Tablet
650 mg PO Q6H PRN (Reason: pain )
prednisone 20 mg tablet
20 mg PO BIDPRN PRN (Reason: x 5 days for knee pain )
Discharge Orders:
Discharge Patient (As Directed); Ordered 10/23/23
Ordered By: Antoni Shields
Discharge Date and Time
Discharge Date/Time: 10/23/23 15:27
Print Language: TAJIK
--- NOTE | 2023-10-23 10:02 | CM ---
Addendum entered by Corina Guillaume 10/23/23 10:15:
Transport arranged for 1330
Dai ay [facility] made aware
Daughter Lisa notified
Discussed IMM with Pt
Original Note:
Pt for d/c today to [facility]
Spoke with Dai at [facility] - aware
Plan - transfer to [facility]
R - [phone], ext [phone]
- [phone]
[2023-10-23 10:32] VITALS: BP 130/79; PULSE 89; O2SAT 97
[2023-10-23 11:20] VITALS: PULSE 86
[2023-10-23 11:30] VITALS: BP 140/91
[2023-10-23 12:24] VITALS: PULSE 86
--- NOTE | 2023-10-23 15:06 | W.PN.NEPH.PH ---
Today's Communication / Plan
-
- likely for d/c
Assessment/Plan
-
Assessment:
Hyponatremia
Hypertension
Fall
L2 compression fracture
Hypothyroidism
History seizure
Depression/anxiety
Plan:
Na stable without further interventions
Fluid restriction 40 ounces per day
Encouraged high solute intake
Follow BMP
May need to hold bupropion and buspirone if sodium falls
-
-
Date of Service: October 23, 2023
CC / HPI / ROS
-
Chief Complaint:
hyponatremia
History of Present Illness:
Na up to 129 with 3%, given samsca now up to 133
BP stable
remains on buproprion for anxiety
Review of Systems:
no CP/SOB
no issues with FR
Labs
-
Labs:
WBC 5.8 10^3/uL (4.8-10.8) 10/23/23 05:29
RBC 3.68 10^6/uL (4.20-5.40) L 10/23/23 05:29
Hgb 12.0 g/dL (12.0-16.0) 10/23/23 05:29
Hct 34.8 % (37.0-47.0) L 10/23/23 05:29
Plt Count 219 10^3/uL (130-400) 10/23/23 05:29
Sodium 133 mmol/L (135-145) L 10/23/23 05:29
Potassium 4.4 mmol/L (3.5-5.1) 10/23/23 05:29
Chloride 99 mmol/L (98-107) 10/23/23 05:29
Carbon Dioxide 26 mmol/L (22-30) 10/23/23 05:29
BUN 13 mg/dl (7-17) 10/23/23 05:29
Creatinine 0.5 mg/dL (0.6-1.0) L 10/23/23 05:29
eGFR > 60.00 10/23/23 05:29
Glucose 110 mg/dl (70-99) H 10/23/23 05:29
Calcium 8.9 mg/dl (8.4-10.2) 10/23/23 05:29
Physical Exam
-
Vital Signs:
Vital Signs
Temp Pulse Resp BP Pulse Ox
98.0 F 96 18 140/91 97
10/23/23 11:30 10/23/23 11:30 10/23/23 11:30 10/23/23 11:30 10/23/23 11:30
Cardiovascular:: Regular rate and rhythm
Respiratory:: Bilateral: Coarse
Lung Excursion:: Normal
Abdomen:: Nontender and Soft
Bowel Sounds:: Normal
Extremity Edema:: None: Bilateral:
Khan Catheter: No
== END 2023-10-23 15:27 | DRG 641 ==
LOC: 3 WEST ACU 13:55
PROVIDERS: ADMITTING PHYSICIAN Internal Medicine; ATTENDING PHYSICIAN Family Medicine; CONSULT PHYSICIAN Specialist; EMERGENCY PHYSICIAN Emergency Medicine; FAMILY PHYSICIAN Family Medicine
DX: E87.1 Hypo-osmolality and hyponatremia (principal); S32.020A Wedge compression fracture of second lumbar vertebra, initial encounter for closed fracture; I67.81 Acute cerebrovascular insufficiency; I10 Essential (primary) hypertension; I48.0 Paroxysmal atrial fibrillation; E03.9 Hypothyroidism, unspecified; F41.9 Anxiety disorder, unspecified; F32.A Depression, unspecified; R26.2 Difficulty in walking, not elsewhere classified; D32.9 Benign neoplasm of meninges, unspecified; Z86.73 Personal history of transient ischemic attack (TIA), and cerebral infarction without residual deficits
CPT/HCPCS: 70450; 72100; 72170; 72220; 80048; 82533; 82570; 83735; 83935; 84300; 84439; 84443; 85025; 85027; 87070; 90471; 90715; 95816; 97116; 97162; 97166; 97530; 99285

== ENCOUNTER → 2025-04-21 11:20 | Outpatient (REF) | payer MEDICARE, OTHER, SELFPAY | LOC: REG 11:20 | PROVIDERS: ATTENDING PHYSICIAN Student in an Organized Health Care Education/Training Program | DX: M25.561 Pain in right knee (principal) | CPT/HCPCS: 87015; 87070; 87075; 87205 ==